=== PATIENT | male | born 1980 | race American Indian/Alaskan Native ===

== ENCOUNTER 2019-05-23 14:51 | Emergency (ER) | payer OTHER ==
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
[2019-05-23] MEDS ORDERED: traMADol 50 MG TAB PO ONE (18:46)
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
[2019-05-23 20:35] VITALS: BP 141/86
== END 2019-05-23 20:25 | disposition home or self-care (01) ==
LOC: ED 14:51
DX: S39.012A Strain of muscle, fascia and tendon of lower back, initial encounter (principal); J06.9 Acute upper respiratory infection, unspecified; E11.9 Type 2 diabetes mellitus without complications; Z79.899 Other long term (current) drug therapy; V89.2XXA Person injured in unspecified motor-vehicle accident, traffic, initial encounter; Y93.89 Activity, other specified; Y92.410 Unspecified street and highway as the place of occurrence of the external cause; Y99.8 Other external cause status
CPT/HCPCS: 72100